=== PATIENT | male | born 1945 | race Caucasian/White ===

== ENCOUNTER 2020-07-03 00:07 | Inpatient (IN) | payer OTHER, MEDICARE ==
[2020-07-03] MEDS ORDERED: MIDAZOLAM HCL 2 MG/2 ML SINGLE DOSE VIAL ONE (00:19)
[2020-07-03] MEDS ORDERED: MIDAZOLAM HCL 2 MG/2 ML SINGLE DOSE VIAL IVPUSH ONE (00:22)
[2020-07-03] MEDS ORDERED: SODIUM CHLORIDE 0.9% 1000 ML INFUS.BAG IV ONE (00:22)
[2020-07-03] MEDS ORDERED: VANCOMYCIN 1 GM in D5W (PRE-DOCKED) 1,000 MG/250 ML IVPB ONE (00:23)
[2020-07-03] MEDS ORDERED: PIPERACILLIN/TAZOB 4.5 GM 4.5 GM in DEXTROSE 5%-WATER 100 ML IVPB ONE (00:24)
[2020-07-03] MEDS ORDERED: MIDAZOLAM 100 MG/100 ML MG IVPB ONE (00:29)
[2020-07-03] MEDS ORDERED: FENTANYL NS IVPB 500 MCG/100 ML BAG IVPB ONE (00:40)
[2020-07-03 00:46] LABS: ARTERIAL BLD GAS O2 SATURATION 99.3 mmHg (95-98); ARTERIAL BLOOD GAS PO2 302.4 mmHg (80-100)
[2020-07-03 00:47] LABS: ARTERIAL BLOOD GAS pH 7.005 (7.350-7.450)
[2020-07-03 00:48] LABS: ALLENS TEST POSITIVE
[2020-07-03 00:49] LABS: VENT MODE A/C; VENT RATE 20
[2020-07-03] MEDS ORDERED: SODIUM BICARBONATE 8.4% 50 MEQ/50 ML DISP.SYRIN IVPUSH ONE ×2 (01:04→01:05)
[2020-07-03] MEDS ORDERED: VASOPRESSIN 40 UNITS in SODIUM CHLORIDE 98 ML IVPB SCH (01:15)
[2020-07-03] MEDS: MIDAZOLAM 100 MG/100 ML MG IVPB SCH ×3 (01:18→21:58)
[2020-07-03] MEDS: NOREPINEPHRINE NS PREMIX 8,000 MCG/500 ML BAG IVPB SCH (01:21)
[2020-07-03] MEDS: FENTANYL NS IVPB 500 MCG/100 ML BAG IVPB SCH (01:22)
[2020-07-03] MEDS ORDERED: SODIUM BICARBONATE 8.4% - 50 ML ONE (02:21)
[2020-07-03] MEDS ORDERED: PIPERACILLIN/TAZOB 4.5 GM 4.5 GM/100 ML BAG IVPB ONE (02:22)
[2020-07-03] MEDS ORDERED: VANCOMYCIN 1 GRAM (PRE-DOCKED) 1,000 MG/250 ML BAG IVPB ONE (02:22)
[2020-07-03 02:53] LABS: VENOUS BASE EXCESS 1.8 mmol/L (-2-2); VENOUS O2 SATURATION 68.7 % (70-80); VENOUS PH 7.289 (7.310-7.410)
[2020-07-03 02:56] LABS: BASO % 0.5 % (0-2.0); EOS % 0.6 % (0-4.5); HEMATOCRIT 28.8 % (35.4-49); HEMOGLOBIN 9.3 GM/dL (11.7-16.9); MCH 30.1 pg (25.7-33.7); MCHC 32.2 g/dl (32.0-35.9); MEAN CELL VOLUME 93.5 fl (80-96); MEAN PLT VOLUME 9.8 fl (7.5-11.1); MONO % 5.1 % (3.8-10.2); NEUT % 89.8 % (42.8-82.8); PLATELET COUNT 293 K/MM3 (134-434); RBC 3.08 M/mm3 (4.00-5.60); RDW 14.5 % (11.9-15.9); WHITE BLOOD COUNT 18.9 K/mm3 (4.0-10.0)
[2020-07-03 03:00] LABS: EPI CELLS >36 /uL (0-25.1); HYALINE CASTS 119 /uL (0-3.1); URINE APPEARANCE TURBID; URINE BACTERIA 2433 /uL (0-1359); URINE BILIRUBIN NEGATIVE (NEGATIVE); URINE COLOR ORANGE; URINE GLUCOSE (UA) TRACE (NEGATIVE); URINE KETONE NEGATIVE (NEGATIVE); URINE LEUK ESTERASE 3+ (NEGATIVE); URINE NITRITE NEGATIVE (NEGATIVE); URINE PROTEIN 4+ (NEGATIVE); URINE WBC 10810 /uL (0-25.8)
[2020-07-03 03:13] LABS: INR 0.99 (0.83-1.09); PROTHROMBIN TIME (PATIENT) 12.2 SEC (9.7-13.0)
[2020-07-03 03:16] LABS: ACTIVATED PTT 32.5 SECONDS (25.2-36.5)
[2020-07-03] MEDS ORDERED: HEPARIN NA (PORCINE) 5,000 UNITS/ML 1ML VIAL IVPUSH PRN ×2 (03:40)
[2020-07-03] MEDS ORDERED: HEPARIN - 25,000 UNIT in SODIUM CHLORIDE 495 ML IV SCH (03:45)
[2020-07-03 03:56] LABS: ALBUMIN 2.9 g/dl (3.4-5.0); BILIRUBIN,TOTAL 0.6 mg/dL (0.2-1); BLOOD UREA NITROGEN 18.1 mg/dL (7-18); CALCIUM 10.2 mg/dL (8.5-10.1); CREATININE 0.7 mg/dL (0.55-1.3); MAGNESIUM 2.4 mg/dL (1.8-2.4); N-TERMINAL BNP 283.8 pg/ml (5-450); TOT PROT 6.6 g/dl (6.4-8.2)
[2020-07-03 04:47] LABS: PLATELET ESTIMATE NORMAL
[2020-07-03] MEDS: KCL 10 MEQ IVPB 10 MEQ/100 ML INFUS.BAG IVPB SCH ×5 (05:00→11:29)
[2020-07-03 05:06] LABS: URINE RBC 4980 /uL (0-23.9); YEAST NONE SEEN (NEGATIVE)
[2020-07-03] MEDS ORDERED: HEPARIN INFUSION - 25,000 UNITS/500 ML INFUS.BAG IVPB SCH ×2 (06:00→06:45)
[2020-07-03 06:26] LABS: ARTERIAL BLD GAS O2 SATURATION 97.9 mmHg (95-98); ARTERIAL BLOOD GAS BASE EXCESS 8.3 mmol/L (-2-2); ARTERIAL BLOOD GAS pH 7.425 (7.350-7.450)
[2020-07-03 06:32] LABS: ALLENS TEST POSITIVE; VENT MODE VOL A/C; VENT RATE 20
[2020-07-03 06:59] LABS: HEMATOCRIT 30.1 % (35.4-49); HEMOGLOBIN 9.9 GM/dL (11.7-16.9); MCH 30.2 pg (25.7-33.7); MCHC 32.7 g/dl (32.0-35.9); MEAN CELL VOLUME 92.2 fl (80-96); MEAN PLT VOLUME 9.1 fl (7.5-11.1); PLATELET COUNT 278 K/MM3 (134-434); RBC 3.27 M/mm3 (4.00-5.60); RDW 14.6 % (11.9-15.9); WHITE BLOOD COUNT 16.8 K/mm3 (4.0-10.0)
[2020-07-03 07:08] LABS: INR 1.03 (0.83-1.09); PROTHROMBIN TIME (PATIENT) 12.6 SEC (9.7-13.0)
[2020-07-03 07:11] LABS: ACTIVATED PTT 30.4 SECONDS (25.2-36.5)
[2020-07-03 07:26] LABS: CALCIUM 9.3 mg/dL (8.5-10.1)
[2020-07-03 07:27] LABS: ALBUMIN 2.9 g/dl (3.4-5.0); BLOOD UREA NITROGEN 19.7 mg/dL (7-18); MAGNESIUM 2.2 mg/dL (1.8-2.4)
[2020-07-03 07:30] LABS: BILIRUBIN,TOTAL 0.8 mg/dL (0.2-1); CREATININE 0.5 mg/dL (0.55-1.3); PHOSPHOROUS 3.9 mg/dL (2.5-4.9); TOT PROT 6.4 g/dl (6.4-8.2)
[2020-07-03] MEDS ORDERED: DEXTROSE 5%-WATER - 50 ML IVPB ONE ×3 (09:22→21:52)
[2020-07-03] MEDS ORDERED: PIPERACILLIN/TAZOBACTAM 3.375 GM VIAL IVPB ONE ×3 (09:22→21:52)
[2020-07-03] MEDS: PANTOPRAZOLE SODIUM 40 MG VIAL IVPUSH SCH (09:29)
[2020-07-03] MEDS ORDERED: PIPERACILLIN/TAZOB 3.375 GM 3.375 GM in DEXTROSE 5%-WATER - 50 ML IVPB SCH (10:00)
[2020-07-03] MEDS: FERROUS SO4 300 MG/5 ML ORAL SOLN UNIT DOSE CUPS GT SCH (11:28)
[2020-07-03] MEDS: MUPIROCIN 2% TOPICAL OINTMENT FOR DECOLONIZATION NS SCH ×2 (12:00→21:58)
[2020-07-03] MEDS ORDERED: MIDAZOLAM IN 0.9 % SOD.CHLORID 1 MG/1 ML PLAST..BAG ONE ×2 (12:10→21:54)
[2020-07-03] MEDS ORDERED: IRON SUCROSE INJECTION 100 MG in SODIUM CHLORIDE 95 ML IVPB ONE (12:30)
[2020-07-03] MEDS: HEPARIN NA (PORCINE) 5,000 UNITS/ML 1ML VIAL SQ SCH ×2 (15:03→21:58)
[2020-07-03] MEDS ORDERED: PT OWN MED DRAWER 7, Y5N ONE ×2 (15:03→16:27)
[2020-07-03] MEDS: PIPERACILLIN/TAZOB 3.375 GM 3.375 GM in DEXTROSE 5%-WATER - 50 ML IVPB SCH (17:03)
[2020-07-03] MEDS: CHLORHEXIDINE GLUCONATE 4% CLEANSER FOR DECOLONIZATION TP SCH (21:58)
[2020-07-04] MEDS: NOREPINEPHRINE NS PREMIX 8,000 MCG/500 ML BAG IVPB SCH (01:20)
[2020-07-04] MEDS: PIPERACILLIN/TAZOB 3.375 GM 3.375 GM in DEXTROSE 5%-WATER - 50 ML IVPB SCH ×3 (02:00→17:14)
[2020-07-04] MEDS: FENTANYL NS IVPB 500 MCG/100 ML BAG IVPB SCH (06:00)
[2020-07-04] MEDS: MIDAZOLAM 100 MG/100 ML MG IVPB SCH ×2 (06:00→08:51)
[2020-07-04] MEDS: HEPARIN NA (PORCINE) 5,000 UNITS/ML 1ML VIAL SQ SCH ×3 (06:09→21:22)
[2020-07-04 07:02] LABS: BASO % 0.7 % (0-2.0); EOS % 0.2 % (0-4.5); HEMATOCRIT 26.7 % (35.4-49); HEMOGLOBIN 8.9 GM/dL (11.7-16.9); LYMPH % 11.4 % (8-40); MCH 30.6 pg (25.7-33.7); MCHC 33.4 g/dl (32.0-35.9); MEAN CELL VOLUME 91.6 fl (80-96); MEAN PLT VOLUME 9.2 fl (7.5-11.1); MONO % 10.9 % (3.8-10.2); NEUT % 76.8 % (42.8-82.8); PLATELET COUNT 235 K/MM3 (134-434); RBC 2.92 M/mm3 (4.00-5.60); RDW 14.8 % (11.9-15.9); WHITE BLOOD COUNT 10.3 K/mm3 (4.0-10.0)
[2020-07-04 07:30] LABS: CALCIUM 8.7 mg/dL (8.5-10.1)
[2020-07-04 07:31] LABS: ALBUMIN 2.6 g/dl (3.4-5.0); BLOOD UREA NITROGEN 22.5 mg/dL (7-18); MAGNESIUM 1.9 mg/dL (1.8-2.4)
[2020-07-04 07:34] LABS: CREATININE 0.5 mg/dL (0.55-1.3); PHOSPHOROUS 3.3 mg/dL (2.5-4.9)
[2020-07-04 07:35] LABS: BILIRUBIN,TOTAL 0.7 mg/dL (0.2-1)
[2020-07-04 07:36] LABS: TOT PROT 5.7 g/dl (6.4-8.2)
[2020-07-04] MEDS ORDERED: PIPERACILLIN/TAZOBACTAM 3.375 GM VIAL IVPB ONE ×3 (08:43→21:21)
[2020-07-04] MEDS ORDERED: MIDAZOLAM IN 0.9 % SOD.CHLORID 1 MG/1 ML PLAST..BAG ONE (08:43)
[2020-07-04] MEDS ORDERED: DEXTROSE 5%-WATER - 50 ML IVPB ONE ×3 (08:44→21:21)
[2020-07-04] MEDS: PANTOPRAZOLE SODIUM 40 MG VIAL IVPUSH SCH (08:59)
[2020-07-04] MEDS: FERROUS SO4 300 MG/5 ML ORAL SOLN UNIT DOSE CUPS GT SCH (09:16)
[2020-07-04] MEDS: MUPIROCIN 2% TOPICAL OINTMENT FOR DECOLONIZATION NS SCH ×2 (09:17→21:22)
[2020-07-04] MEDS ORDERED: POTASSIUM CHLORIDE ORAL LIQUID 20 MEQ/15 ML PO ONE (09:50)
[2020-07-04] MEDS ORDERED: PIPERACILLIN/TAZOB 3.375 GM 3.375 GM in DEXTROSE 5%-WATER - 50 ML IVPB SCH (10:00)
[2020-07-04] MEDS: VANCOMYCIN 1 GRAM (PRE-DOCKED) 1,000 MG/250 ML BAG IVPB SCH ×2 (12:03→21:22)
[2020-07-04 18:02] LABS: BLOOD UREA NITROGEN 20.2 mg/dL (7-18); CALCIUM 8.9 mg/dL (8.5-10.1)
[2020-07-04 18:06] LABS: CREATININE 0.6 mg/dL (0.55-1.3)
[2020-07-04] MEDS ORDERED: ACETAMINOPHEN 1000 MG/100 ML VIAL (NON FORMULARY) IVPB ONE (21:19)
[2020-07-04] MEDS ORDERED: ACETAMINOPHEN INJECTION 100 ML IVPB ONE (21:21)
[2020-07-04] MEDS: CHLORHEXIDINE GLUCONATE 4% CLEANSER FOR DECOLONIZATION TP SCH (21:22)
[2020-07-05] MEDS ORDERED: MIDAZOLAM IN 0.9 % SOD.CHLORID 1 MG/1 ML PLAST..BAG ONE (02:12)
[2020-07-05] MEDS ORDERED: PIPERACILLIN/TAZOBACTAM 3.375 GM VIAL IVPB ONE ×3 (02:26→17:43)
[2020-07-05] MEDS ORDERED: DEXTROSE 5%-WATER - 50 ML IVPB ONE ×3 (02:26→17:43)
[2020-07-05] MEDS: PIPERACILLIN/TAZOB 3.375 GM 3.375 GM in DEXTROSE 5%-WATER - 50 ML IVPB SCH ×3 (03:17→17:47)
[2020-07-05] MEDS: MIDAZOLAM 100 MG/100 ML MG IVPB SCH (04:00)
[2020-07-05] MEDS: NOREPINEPHRINE NS PREMIX 8,000 MCG/500 ML BAG IVPB SCH (06:02)
[2020-07-05] MEDS: FENTANYL NS IVPB 500 MCG/100 ML BAG IVPB SCH ×2 (06:02→15:51)
[2020-07-05] MEDS: HEPARIN NA (PORCINE) 5,000 UNITS/ML 1ML VIAL SQ SCH ×3 (06:03→22:01)
[2020-07-05 06:30] LABS: HEMATOCRIT 27.3 % (35.4-49); HEMOGLOBIN 9.4 GM/dL (11.7-16.9); MCHC 34.3 g/dl (32.0-35.9); MEAN CELL VOLUME 90.5 fl (80-96); PLATELET COUNT 240 K/MM3 (134-434); RBC 3.02 M/mm3 (4.00-5.60); RDW 14.2 % (11.9-15.9); WHITE BLOOD COUNT 12.3 K/mm3 (4.0-10.0)
[2020-07-05 06:50] LABS: ALBUMIN 2.7 g/dl (3.4-5.0); CALCIUM 8.3 mg/dL (8.5-10.1)
[2020-07-05 06:51] LABS: BLOOD UREA NITROGEN 19.3 mg/dL (7-18)
[2020-07-05 06:54] LABS: CREATININE 0.6 mg/dL (0.55-1.3)
[2020-07-05 06:55] LABS: BILIRUBIN,TOTAL 0.7 mg/dL (0.2-1); TOT PROT 6.3 g/dl (6.4-8.2)
[2020-07-05] MEDS: AMINO ACIDS/PROTEIN HYDROLYS 30 ML LIQUID.PKT PO SCH (09:00)
[2020-07-05] MEDS ORDERED: PT OWN MED DRAWER 7, Y5N ONE (09:03)
[2020-07-05] MEDS: FERROUS SO4 300 MG/5 ML ORAL SOLN UNIT DOSE CUPS GT SCH (09:05)
[2020-07-05] MEDS: PANTOPRAZOLE SODIUM 40 MG VIAL IVPUSH SCH (09:05)
[2020-07-05] MEDS: MUPIROCIN 2% TOPICAL OINTMENT FOR DECOLONIZATION NS SCH ×2 (09:05→22:01)
[2020-07-05] MEDS: VANCOMYCIN 1 GRAM (PRE-DOCKED) 1,000 MG/250 ML BAG IVPB SCH ×2 (10:22→22:01)
[2020-07-05] MEDS: THIAMINE HCL 200 MG/2 ML VIAL IVPB SCH (11:10)
[2020-07-05] MEDS: CHLORHEXIDINE GLUCONATE 4% CLEANSER FOR DECOLONIZATION TP SCH (22:01)
[2020-07-06] MEDS: MIDAZOLAM 100 MG/100 ML MG IVPB SCH (01:05)
[2020-07-06] MEDS: NOREPINEPHRINE NS PREMIX 8,000 MCG/500 ML BAG IVPB SCH (01:05)
[2020-07-06] MEDS ORDERED: PIPERACILLIN/TAZOBACTAM 3.375 GM VIAL IVPB ONE ×3 (01:08→16:07)
[2020-07-06] MEDS ORDERED: DEXTROSE 5%-WATER - 50 ML IVPB ONE ×3 (01:08→16:08)
[2020-07-06] MEDS: PIPERACILLIN/TAZOB 3.375 GM 3.375 GM in DEXTROSE 5%-WATER - 50 ML IVPB SCH ×3 (01:10→17:05)
[2020-07-06] MEDS: FENTANYL NS IVPB 500 MCG/100 ML BAG IVPB SCH (01:10)
[2020-07-06] MEDS: HEPARIN NA (PORCINE) 5,000 UNITS/ML 1ML VIAL SQ SCH ×3 (05:52→21:27)
[2020-07-06 06:26] LABS: ARTERIAL BLD GAS O2 SATURATION 98.9 mmHg (95-98); ARTERIAL BLOOD GAS BASE EXCESS 3.3 mmol/L (-2-2); ARTERIAL BLOOD GAS pH 7.442 (7.350-7.450)
[2020-07-06 06:27] LABS: ALLENS TEST POSITIVE; VENT MODE A/C
[2020-07-06 06:28] LABS: VENT RATE 20
[2020-07-06] MEDS: THIAMINE HCL 200 MG/2 ML VIAL IVPB SCH (10:30)
[2020-07-06] MEDS: PANTOPRAZOLE SODIUM 40 MG VIAL IVPUSH SCH (10:30)
[2020-07-06] MEDS ORDERED: PT OWN MED DRAWER 7, Y5N ONE (10:41)
[2020-07-06] MEDS: AMINO ACIDS/PROTEIN HYDROLYS 30 ML LIQUID.PKT PO SCH (10:44)
[2020-07-06] MEDS: FERROUS SO4 300 MG/5 ML ORAL SOLN UNIT DOSE CUPS GT SCH (10:44)
[2020-07-06] MEDS: VANCOMYCIN 1 GRAM (PRE-DOCKED) 1,000 MG/250 ML BAG IVPB SCH ×2 (10:48→21:28)
[2020-07-06] MEDS ORDERED: SODIUM BICARBONATE 8.4% - 50 ML ONE (11:59)
[2020-07-06] MEDS ORDERED: SODIUM BICARBONATE 8.4% 50 MEQ/50 ML VIAL ONE (11:59)
[2020-07-06] MEDS: MUPIROCIN 2% TOPICAL OINTMENT FOR DECOLONIZATION NS SCH ×2 (13:37→21:26)
[2020-07-06 17:01] LABS: BASO % 0.4 % (0-2.0); EOS % 0.8 % (0-4.5); HEMATOCRIT 23.1 % (35.4-49); HEMOGLOBIN 7.8 GM/dL (11.7-16.9); LYMPH % 9.1 % (8-40); MCH 30.8 pg (25.7-33.7); MEAN CELL VOLUME 90.7 fl (80-96); MEAN PLT VOLUME 9.3 fl (7.5-11.1); MONO % 10.2 % (3.8-10.2); NEUT % 79.5 % (42.8-82.8); PLATELET COUNT 201 K/MM3 (134-434); RBC 2.54 M/mm3 (4.00-5.60); RDW 14.1 % (11.9-15.9); WHITE BLOOD COUNT 8.6 K/mm3 (4.0-10.0)
[2020-07-06 17:29] LABS: BLOOD UREA NITROGEN 17.6 mg/dL (7-18); CALCIUM 8.2 mg/dL (8.5-10.1)
[2020-07-06 17:30] LABS: MAGNESIUM 1.7 mg/dL (1.8-2.4)
[2020-07-06 17:32] LABS: PHOSPHOROUS 2.4 mg/dL (2.5-4.9)
[2020-07-06 17:33] LABS: CREATININE 0.4 mg/dL (0.55-1.3)
[2020-07-06 17:34] LABS: BILIRUBIN,TOTAL 0.7 mg/dL (0.2-1); TOT PROT 5.3 g/dl (6.4-8.2)
[2020-07-06] MEDS ORDERED: MAGNESIUM 1GM/D5W - 2 GM/200 ML IVPB IVPB ONE (17:34)
[2020-07-06 17:36] LABS: ALBUMIN 2.1 g/dl (3.4-5.0)
[2020-07-06] MEDS: KCL 10 MEQ IVPB 10 MEQ/100 ML INFUS.BAG IVPB SCH ×2 (18:11→19:16)
[2020-07-06] MEDS ORDERED: ACETAMINOPHEN 1000 MG/100 ML VIAL (NON FORMULARY) IVPB PRN (19:35)
[2020-07-06] MEDS: CHLORHEXIDINE GLUCONATE 4% CLEANSER FOR DECOLONIZATION TP SCH (21:27)
[2020-07-07] MEDS ORDERED: PIPERACILLIN/TAZOBACTAM 3.375 GM VIAL IVPB ONE ×3 (00:53→16:51)
[2020-07-07] MEDS ORDERED: DEXTROSE 5%-WATER - 50 ML IVPB ONE ×3 (00:53→16:51)
[2020-07-07] MEDS: PIPERACILLIN/TAZOB 3.375 GM 3.375 GM in DEXTROSE 5%-WATER - 50 ML IVPB SCH ×2 (01:04→09:01)
[2020-07-07] MEDS: HEPARIN NA (PORCINE) 5,000 UNITS/ML 1ML VIAL SQ SCH ×3 (05:37→21:05)
[2020-07-07 06:03] LABS: ARTERIAL BLD GAS O2 SATURATION 95.7 mmHg (95-98); ARTERIAL BLOOD GAS BASE EXCESS 6.6 mmol/L (-2-2); ARTERIAL BLOOD GAS PO2 74.7 mmHg (80-100); ARTERIAL BLOOD GAS pH 7.467 (7.350-7.450)
[2020-07-07 06:06] LABS: ALLENS TEST POSITIVE
[2020-07-07 06:07] LABS: VENT MODE A/C; VENT RATE 20
[2020-07-07 07:20] LABS: BASO % 0.6 % (0-2.0); EOS % 1.5 % (0-4.5); HEMATOCRIT 25.2 % (35.4-49); HEMOGLOBIN 8.6 GM/dL (11.7-16.9); LYMPH % 7.7 % (8-40); MCH 30.6 pg (25.7-33.7); MCHC 34.1 g/dl (32.0-35.9); MEAN CELL VOLUME 89.6 fl (80-96); MEAN PLT VOLUME 9.4 fl (7.5-11.1); MONO % 10.2 % (3.8-10.2); PLATELET COUNT 228 K/MM3 (134-434); RBC 2.81 M/mm3 (4.00-5.60); RDW 14.1 % (11.9-15.9); WHITE BLOOD COUNT 8.8 K/mm3 (4.0-10.0)
[2020-07-07 07:43] LABS: CALCIUM 8.2 mg/dL (8.5-10.1)
[2020-07-07 07:44] LABS: BLOOD UREA NITROGEN 14.4 mg/dL (7-18); MAGNESIUM 2.2 mg/dL (1.8-2.4)
[2020-07-07 07:45] LABS: ALBUMIN 2.2 g/dl (3.4-5.0)
[2020-07-07 07:48] LABS: CREATININE 0.4 mg/dL (0.55-1.3); PHOSPHOROUS 2.4 mg/dL (2.5-4.9)
[2020-07-07 07:50] LABS: TOT PROT 5.6 g/dl (6.4-8.2)
[2020-07-07 07:51] LABS: BILIRUBIN,TOTAL 0.7 mg/dL (0.2-1)
[2020-07-07 08:39] LABS: EPI CELLS 4 /uL (0-25.1); HYALINE CASTS 5 /uL (0-3.1); PH,URINE 7.5 (5.0-8.0); URINE APPEARANCE CLOUDY; URINE BACTERIA 255 /uL (0-1359); URINE BILIRUBIN NEGATIVE (NEGATIVE); URINE COLOR ORANGE; URINE GLUCOSE (UA) NEGATIVE (NEGATIVE); URINE KETONE NEGATIVE (NEGATIVE); URINE LEUK ESTERASE TRACE (NEGATIVE); URINE NITRITE NEGATIVE (NEGATIVE); URINE PROTEIN 3+ (NEGATIVE); URINE RBC 908 /uL (0-23.9); URINE WBC 248 /uL (0-25.8)
[2020-07-07] MEDS ORDERED: POTASSIUM CHLORIDE TABS 20 MEQ TABLET.ER (FP) PO ONE (08:45)
[2020-07-07] MEDS: KCL 10 MEQ IVPB 10 MEQ/100 ML INFUS.BAG IVPB SCH ×3 (08:57→11:55)
[2020-07-07] MEDS: AMINO ACIDS/PROTEIN HYDROLYS 30 ML LIQUID.PKT PO SCH (08:57)
[2020-07-07] MEDS ORDERED: POTASSIUM PHOSPHATE 30 MM in DEXTROSE 5%-WATER - 500 ML IVPB ONE (09:00)
[2020-07-07] MEDS: PANTOPRAZOLE SODIUM 40 MG VIAL IVPUSH SCH (10:04)
[2020-07-07] MEDS: VANCOMYCIN 1 GRAM (PRE-DOCKED) 1,000 MG/250 ML BAG IVPB SCH ×2 (10:04→21:05)
[2020-07-07] MEDS: MUPIROCIN 2% TOPICAL OINTMENT FOR DECOLONIZATION NS SCH ×2 (10:04→21:04)
[2020-07-07] MEDS: FERROUS SO4 300 MG/5 ML ORAL SOLN UNIT DOSE CUPS GT SCH (10:05)
[2020-07-07] MEDS: THIAMINE HCL 200 MG/2 ML VIAL IVPB SCH (10:05)
[2020-07-07] MEDS ORDERED: FUROSEMIDE 40 MG/4 ML INJECTABLE VIAL IVPUSH ONE (13:00)
[2020-07-07] MEDS: CHLORHEXIDINE GLUCONATE 4% CLEANSER FOR DECOLONIZATION TP SCH (21:04)
[2020-07-08] MEDS ORDERED: PIPERACILLIN/TAZOBACTAM 3.375 GM VIAL IVPB ONE ×3 (01:26→20:05)
[2020-07-08] MEDS ORDERED: DEXTROSE 5%-WATER - 50 ML IVPB ONE ×3 (01:26→20:05)
[2020-07-08] MEDS: PIPERACILLIN/TAZOB 3.375 GM 3.375 GM in DEXTROSE 5%-WATER - 50 ML IVPB SCH ×4 (01:27→20:08)
[2020-07-08] MEDS: HEPARIN NA (PORCINE) 5,000 UNITS/ML 1ML VIAL SQ SCH ×3 (05:37→21:31)
[2020-07-08 07:19] LABS: BASO % 0.3 % (0-2.0); HEMATOCRIT 24.6 % (35.4-49); HEMOGLOBIN 8.5 GM/dL (11.7-16.9); LYMPH % 8.4 % (8-40); MCH 30.9 pg (25.7-33.7); MCHC 34.5 g/dl (32.0-35.9); MEAN CELL VOLUME 89.7 fl (80-96); MEAN PLT VOLUME 9.2 fl (7.5-11.1); MONO % 10.6 % (3.8-10.2); NEUT % 75.7 % (42.8-82.8); PLATELET COUNT 248 K/MM3 (134-434); RBC 2.75 M/mm3 (4.00-5.60); RDW 14.1 % (11.9-15.9); WHITE BLOOD COUNT 8.6 K/mm3 (4.0-10.0)
[2020-07-08 07:45] LABS: BLOOD UREA NITROGEN 15.1 mg/dL (7-18); CALCIUM 8.3 mg/dL (8.5-10.1)
[2020-07-08 07:46] LABS: ALBUMIN 2.2 g/dl (3.4-5.0); MAGNESIUM 2.1 mg/dL (1.8-2.4)
[2020-07-08 07:49] LABS: CREATININE 0.4 mg/dL (0.55-1.3); PHOSPHOROUS 2.9 mg/dL (2.5-4.9)
[2020-07-08 07:50] LABS: BILIRUBIN,TOTAL 0.7 mg/dL (0.2-1)
[2020-07-08 07:51] LABS: TOT PROT 5.4 g/dl (6.4-8.2)
[2020-07-08] MEDS ORDERED: POTASSIUM CHLORIDE 20 MEQ PREMIX IVPB 100 ML IVPB ONE (08:44)
[2020-07-08] MEDS ORDERED: KCL 10 MEQ IVPB 10 MEQ/100 ML INFUS.BAG IVPB SCH (08:45)
[2020-07-08] MEDS: AMINO ACIDS/PROTEIN HYDROLYS 30 ML LIQUID.PKT PO SCH (09:00)
[2020-07-08] MEDS ORDERED: POTASSIUM CHLORIDE TABS 20 MEQ TABLET.ER (FP) PO ONE (09:00)
[2020-07-08] MEDS: PANTOPRAZOLE SODIUM 40 MG VIAL IVPUSH SCH (09:29)
[2020-07-08] MEDS: VANCOMYCIN 1 GRAM (PRE-DOCKED) 1,000 MG/250 ML BAG IVPB SCH ×2 (09:30→21:31)
[2020-07-08] MEDS: FERROUS SO4 300 MG/5 ML ORAL SOLN UNIT DOSE CUPS GT SCH (09:38)
[2020-07-08] MEDS: THIAMINE HCL 200 MG/2 ML VIAL IVPB SCH (09:38)
[2020-07-08] MEDS ORDERED: PNEUMOC 13-VAL CONJ-DIP CRM/PF 0.5 ML DISP.SYRIN IM ONE (10:00)
[2020-07-08] MEDS: CHLORHEXIDINE GLUCONATE 4% CLEANSER FOR DECOLONIZATION TP SCH (21:31)
[2020-07-09] MEDS ORDERED: PIPERACILLIN/TAZOBACTAM 3.375 GM VIAL IVPB ONE ×3 (01:46→18:02)
[2020-07-09] MEDS ORDERED: DEXTROSE 5%-WATER - 50 ML IVPB ONE ×3 (01:46→18:02)
[2020-07-09] MEDS: PIPERACILLIN/TAZOB 3.375 GM 3.375 GM in DEXTROSE 5%-WATER - 50 ML IVPB SCH ×3 (02:10→18:36)
[2020-07-09] MEDS: HEPARIN NA (PORCINE) 5,000 UNITS/ML 1ML VIAL SQ SCH ×3 (05:27→21:27)
[2020-07-09 08:44] LABS: BASO % 0.5 % (0-2.0); EOS % 3.9 % (0-4.5); HEMATOCRIT 26.6 % (35.4-49); LYMPH % 7.7 % (8-40); MCH 30.4 pg (25.7-33.7); MCHC 33.7 g/dl (32.0-35.9); MEAN CELL VOLUME 90.2 fl (80-96); MEAN PLT VOLUME 9.9 fl (7.5-11.1); MONO % 10.3 % (3.8-10.2); NEUT % 77.6 % (42.8-82.8); PLATELET COUNT 292 K/MM3 (134-434); RBC 2.94 M/mm3 (4.00-5.60); WHITE BLOOD COUNT 10.2 K/mm3 (4.0-10.0)
[2020-07-09 08:59] LABS: ALBUMIN 2.4 g/dl (3.4-5.0); BLOOD UREA NITROGEN 14.1 mg/dL (7-18); CALCIUM 8.9 mg/dL (8.5-10.1); MAGNESIUM 2.2 mg/dL (1.8-2.4)
[2020-07-09 09:02] LABS: CREATININE 0.4 mg/dL (0.55-1.3)
[2020-07-09 09:03] LABS: PHOSPHOROUS 2.7 mg/dL (2.5-4.9)
[2020-07-09 09:04] LABS: BILIRUBIN,TOTAL 0.6 mg/dL (0.2-1)
[2020-07-09 09:05] LABS: TOT PROT 5.8 g/dl (6.4-8.2)
[2020-07-09] MEDS ORDERED: PNEUMOC 13-VAL CONJ-DIP CRM/PF 0.5 ML DISP.SYRIN IM ONE (10:00)
[2020-07-09] MEDS ORDERED: PT OWN MED DRAWER 7, Y5N ONE (10:35)
[2020-07-09] MEDS: PANTOPRAZOLE SODIUM 40 MG VIAL IVPUSH SCH (10:45)
[2020-07-09] MEDS: AMINO ACIDS/PROTEIN HYDROLYS 30 ML LIQUID.PKT PO SCH (10:45)
[2020-07-09] MEDS: FERROUS SO4 300 MG/5 ML ORAL SOLN UNIT DOSE CUPS GT SCH (10:46)
[2020-07-09] MEDS: VANCOMYCIN 1 GRAM (PRE-DOCKED) 1,000 MG/250 ML BAG IVPB SCH ×2 (11:34→21:27)
[2020-07-09] MEDS: THIAMINE HCL 200 MG/2 ML VIAL IVPB SCH (11:34)
[2020-07-09] MEDS ORDERED: CHLORHEXIDINE GLUCONATE 4% CLEANSER FOR DECOLONIZATION TP SCH (22:00)
[2020-07-10] MEDS ORDERED: PIPERACILLIN/TAZOBACTAM 3.375 GM VIAL IVPB ONE ×3 (01:26→17:41)
[2020-07-10] MEDS ORDERED: DEXTROSE 5%-WATER - 50 ML IVPB ONE ×3 (01:26→17:41)
[2020-07-10] MEDS: PIPERACILLIN/TAZOB 3.375 GM 3.375 GM in DEXTROSE 5%-WATER - 50 ML IVPB SCH ×3 (02:18→17:52)
[2020-07-10] MEDS: HEPARIN NA (PORCINE) 5,000 UNITS/ML 1ML VIAL SQ SCH ×3 (05:02→21:27)
[2020-07-10 09:00] LABS: BLOOD UREA NITROGEN 15.7 mg/dL (7-18); CALCIUM 8.7 mg/dL (8.5-10.1)
[2020-07-10 09:01] LABS: ALBUMIN 2.3 g/dl (3.4-5.0)
[2020-07-10 09:04] LABS: CREATININE 0.4 mg/dL (0.55-1.3)
[2020-07-10 09:05] LABS: BILIRUBIN,TOTAL 0.5 mg/dL (0.2-1)
[2020-07-10] MEDS: FERROUS SO4 300 MG/5 ML ORAL SOLN UNIT DOSE CUPS GT SCH (09:48)
[2020-07-10] MEDS: AMINO ACIDS/PROTEIN HYDROLYS 30 ML LIQUID.PKT PO SCH (09:48)
[2020-07-10] MEDS: PANTOPRAZOLE SODIUM 40 MG VIAL IVPUSH SCH (09:48)
[2020-07-10] MEDS: VANCOMYCIN 1 GRAM (PRE-DOCKED) 1,000 MG/250 ML BAG IVPB SCH ×2 (11:12→23:14)
[2020-07-10] MEDS ORDERED: ACETAMINOPHEN 160 MG/5 ML *Children Solution PO PRN (11:54)
[2020-07-10] MEDS ORDERED: ACETAMINOPHEN 650 MG/20.3 ML ORAL SOLUTION (CUPS) PO PRN (12:05)
[2020-07-10] MEDS: THIAMINE HCL 200 MG/2 ML VIAL IVPB SCH (12:48)
[2020-07-11] MEDS ORDERED: DEXTROSE 5%-WATER - 50 ML IVPB ONE ×3 (00:58→17:15)
[2020-07-11] MEDS ORDERED: PIPERACILLIN/TAZOBACTAM 3.375 GM VIAL IVPB ONE ×3 (00:58→17:15)
[2020-07-11] MEDS: PIPERACILLIN/TAZOB 3.375 GM 3.375 GM in DEXTROSE 5%-WATER - 50 ML IVPB SCH ×3 (02:15→17:16)
[2020-07-11] MEDS: HEPARIN NA (PORCINE) 5,000 UNITS/ML 1ML VIAL SQ SCH ×3 (05:09→22:38)
[2020-07-11 09:10] LABS: ALBUMIN 2.2 g/dl (3.4-5.0); CALCIUM 9.2 mg/dL (8.5-10.1)
[2020-07-11 09:11] LABS: BLOOD UREA NITROGEN 16.2 mg/dL (7-18)
[2020-07-11 09:16] LABS: BILIRUBIN,TOTAL 0.4 mg/dL (0.2-1); TOT PROT 5.6 g/dl (6.4-8.2)
[2020-07-11 09:17] LABS: CREATININE 0.5 mg/dL (0.55-1.3)
[2020-07-11] MEDS: AMINO ACIDS/PROTEIN HYDROLYS 30 ML LIQUID.PKT PO SCH (10:00)
[2020-07-11] MEDS: PANTOPRAZOLE SODIUM 40 MG VIAL IVPUSH SCH (10:00)
[2020-07-11] MEDS: FERROUS SO4 300 MG/5 ML ORAL SOLN UNIT DOSE CUPS GT SCH (10:00)
[2020-07-11] MEDS: VANCOMYCIN 1 GRAM (PRE-DOCKED) 1,000 MG/250 ML BAG IVPB SCH ×2 (10:05→22:39)
[2020-07-11] MEDS: THIAMINE HCL 200 MG/2 ML VIAL IVPB SCH (10:07)
[2020-07-12] MEDS ORDERED: DEXTROSE 5%-WATER - 50 ML IVPB ONE ×3 (01:15→17:24)
[2020-07-12] MEDS ORDERED: PIPERACILLIN/TAZOBACTAM 3.375 GM VIAL IVPB ONE ×3 (01:15→17:23)
[2020-07-12] MEDS: PIPERACILLIN/TAZOB 3.375 GM 3.375 GM in DEXTROSE 5%-WATER - 50 ML IVPB SCH ×3 (02:30→17:29)
[2020-07-12] MEDS: HEPARIN NA (PORCINE) 5,000 UNITS/ML 1ML VIAL SQ SCH ×3 (05:41→21:46)
[2020-07-12 08:35] LABS: ALBUMIN 2.3 g/dl (3.4-5.0)
[2020-07-12 08:37] LABS: BLOOD UREA NITROGEN 14.2 mg/dL (7-18); CALCIUM 8.9 mg/dL (8.5-10.1)
[2020-07-12 08:39] LABS: CREATININE 0.4 mg/dL (0.55-1.3)
[2020-07-12 08:40] LABS: TOT PROT 5.9 g/dl (6.4-8.2)
[2020-07-12 08:43] LABS: BILIRUBIN,TOTAL 0.6 mg/dL (0.2-1)
[2020-07-12] MEDS ORDERED: POTASSIUM CHLORIDE TABS 20 MEQ TABLET.ER (FP) PO ONE (09:30)
[2020-07-12] MEDS: PANTOPRAZOLE 40 MG TABLET PO SCH (11:30)
[2020-07-12] MEDS: THIAMINE HCL 100 MG TABLET (FP) PO SCH (11:30)
[2020-07-12] MEDS: FERROUS SO4 300 MG/5 ML ORAL SOLN UNIT DOSE CUPS GT SCH (11:30)
[2020-07-12] MEDS: VANCOMYCIN 1 GRAM (PRE-DOCKED) 1,000 MG/250 ML BAG IVPB SCH ×2 (11:31→21:46)
[2020-07-12] MEDS: AMINO ACIDS/PROTEIN HYDROLYS 30 ML LIQUID.PKT PO SCH (11:32)
[2020-07-12 14:28] VITALS: BMI 23.3
[2020-07-12] MEDS ORDERED: PT OWN MED DRAWER 7, Y5N ONE (15:44)
[2020-07-13] MEDS ORDERED: DEXTROSE 5%-WATER - 50 ML IVPB ONE ×3 (00:57→18:08)
[2020-07-13] MEDS ORDERED: PIPERACILLIN/TAZOBACTAM 3.375 GM VIAL IVPB ONE ×3 (00:57→18:08)
[2020-07-13] MEDS: PIPERACILLIN/TAZOB 3.375 GM 3.375 GM in DEXTROSE 5%-WATER - 50 ML IVPB SCH ×3 (01:27→18:36)
[2020-07-13] MEDS: HEPARIN NA (PORCINE) 5,000 UNITS/ML 1ML VIAL SQ SCH ×3 (05:01→22:24)
[2020-07-13 09:10] LABS: ALBUMIN 2.3 g/dl (3.4-5.0); CALCIUM 9.2 mg/dL (8.5-10.1)
[2020-07-13 09:15] LABS: BILIRUBIN,TOTAL 0.5 mg/dL (0.2-1); CREATININE 0.5 mg/dL (0.55-1.3); TOT PROT 5.9 g/dl (6.4-8.2)
[2020-07-13] MEDS: AMINO ACIDS/PROTEIN HYDROLYS 30 ML LIQUID.PKT PO SCH (10:29)
[2020-07-13] MEDS: FERROUS SO4 300 MG/5 ML ORAL SOLN UNIT DOSE CUPS GT SCH (10:29)
[2020-07-13] MEDS: PANTOPRAZOLE 40 MG TABLET PO SCH (10:29)
[2020-07-13] MEDS: THIAMINE HCL 100 MG TABLET (FP) PO SCH (10:29)
[2020-07-13] MEDS: VANCOMYCIN 1 GRAM (PRE-DOCKED) 1,000 MG/250 ML BAG IVPB SCH ×2 (10:29→22:21)
[2020-07-13] MEDS: amLODIPine BESYLATE 5 MG TABLET (FP) PO SCH (13:21)
[2020-07-13] MEDS ORDERED: ALBUTEROL SO4 2.5/IPRATROPIUM 0.5 INH SOL 3 ML VIAL.NEB. NEB PRN (16:41)
[2020-07-13 18:21] LABS: BASO % 0.3 % (0-2.0); EOS % 2.1 % (0-4.5); HEMATOCRIT 26.8 % (35.4-49); HEMOGLOBIN 8.8 GM/dL (11.7-16.9); LYMPH % 8.6 % (8-40); MCH 29.8 pg (25.7-33.7); MCHC 33.1 g/dl (32.0-35.9); MEAN CELL VOLUME 90.2 fl (80-96); MEAN PLT VOLUME 8.7 fl (7.5-11.1); PLATELET COUNT 369 K/MM3 (134-434); RBC 2.97 M/mm3 (4.00-5.60); RDW 14.2 % (11.9-15.9); WHITE BLOOD COUNT 11.5 K/mm3 (4.0-10.0)
[2020-07-13 18:39] LABS: ALBUMIN 2.2 g/dl (3.4-5.0); BLOOD UREA NITROGEN 17.4 mg/dL (7-18); CALCIUM 8.9 mg/dL (8.5-10.1); MAGNESIUM 2.4 mg/dL (1.8-2.4)
[2020-07-13 18:42] LABS: CREATININE 0.4 mg/dL (0.55-1.3)
[2020-07-13 18:43] LABS: BILIRUBIN,TOTAL 0.4 mg/dL (0.2-1); TOT PROT 5.8 g/dl (6.4-8.2)
[2020-07-14] MEDS ORDERED: DEXTROSE 5%-WATER - 50 ML IVPB ONE ×3 (01:48→17:04)
[2020-07-14] MEDS: PIPERACILLIN/TAZOB 3.375 GM 3.375 GM in DEXTROSE 5%-WATER - 50 ML IVPB SCH ×3 (01:48→17:17)
[2020-07-14] MEDS ORDERED: PIPERACILLIN/TAZOBACTAM 3.375 GM VIAL IVPB ONE ×3 (01:48→17:04)
[2020-07-14] MEDS: HEPARIN NA (PORCINE) 5,000 UNITS/ML 1ML VIAL SQ SCH ×3 (06:01→22:28)
[2020-07-14 08:18] LABS: BASO % 0.3 % (0-2.0); EOS % 2.7 % (0-4.5); HEMATOCRIT 26.6 % (35.4-49); LYMPH % 9.7 % (8-40); MCH 30.2 pg (25.7-33.7); MCHC 33.6 g/dl (32.0-35.9); MEAN CELL VOLUME 89.8 fl (80-96); MEAN PLT VOLUME 9.4 fl (7.5-11.1); MONO % 7.7 % (3.8-10.2); NEUT % 79.6 % (42.8-82.8); PLATELET COUNT 360 K/MM3 (134-434); RBC 2.97 M/mm3 (4.00-5.60); RDW 14.2 % (11.9-15.9)
[2020-07-14 08:45] LABS: CALCIUM 8.8 mg/dL (8.5-10.1)
[2020-07-14 08:46] LABS: ALBUMIN 2.3 g/dl (3.4-5.0); BLOOD UREA NITROGEN 16.6 mg/dL (7-18)
[2020-07-14 08:50] LABS: BILIRUBIN,TOTAL 0.5 mg/dL (0.2-1); CREATININE 0.5 mg/dL (0.55-1.3); TOT PROT 6.1 g/dl (6.4-8.2)
[2020-07-14] MEDS: PANTOPRAZOLE 40 MG TABLET PO SCH (10:36)
[2020-07-14] MEDS: FERROUS SO4 300 MG/5 ML ORAL SOLN UNIT DOSE CUPS GT SCH (10:36)
[2020-07-14] MEDS: VANCOMYCIN 1 GRAM (PRE-DOCKED) 1,000 MG/250 ML BAG IVPB SCH (10:36)
[2020-07-14] MEDS: AMINO ACIDS/PROTEIN HYDROLYS 30 ML LIQUID.PKT PO SCH (10:36)
[2020-07-14] MEDS: THIAMINE HCL 100 MG TABLET (FP) PO SCH (10:36)
[2020-07-14] MEDS: amLODIPine BESYLATE 5 MG TABLET (FP) PO SCH (10:36)
[2020-07-14] MEDS: OCULAR LUBRICANT OPHTHALMIC OINTMENT 7 GM TUBE OU PRN (14:12)
[2020-07-15] MEDS: HEPARIN NA (PORCINE) 5,000 UNITS/ML 1ML VIAL SQ SCH ×3 (05:19→21:37)
[2020-07-15] MEDS: THIAMINE HCL 100 MG TABLET (FP) PO SCH (09:59)
[2020-07-15] MEDS: FERROUS SO4 300 MG/5 ML ORAL SOLN UNIT DOSE CUPS GT SCH (09:59)
[2020-07-15] MEDS: PANTOPRAZOLE 40 MG TABLET PO SCH (09:59)
[2020-07-15] MEDS: OCULAR LUBRICANT OPHTHALMIC OINTMENT 7 GM TUBE OU PRN (09:59)
[2020-07-15] MEDS: amLODIPine BESYLATE 5 MG TABLET (FP) PO SCH (09:59)
[2020-07-15] MEDS: AMINO ACIDS/PROTEIN HYDROLYS 30 ML LIQUID.PKT PO SCH (09:59)
[2020-07-16] MEDS: HEPARIN NA (PORCINE) 5,000 UNITS/ML 1ML VIAL SQ SCH ×3 (05:16→20:59)
[2020-07-16] MEDS: PANTOPRAZOLE 40 MG TABLET PO SCH (10:53)
[2020-07-16] MEDS: FERROUS SO4 300 MG/5 ML ORAL SOLN UNIT DOSE CUPS GT SCH (10:53)
[2020-07-16] MEDS: THIAMINE HCL 100 MG TABLET (FP) PO SCH (10:53)
[2020-07-16] MEDS: amLODIPine BESYLATE 5 MG TABLET (FP) PO SCH (10:53)
[2020-07-16] MEDS: AMINO ACIDS/PROTEIN HYDROLYS 30 ML LIQUID.PKT PO SCH (10:54)
[2020-07-17] MEDS: HEPARIN NA (PORCINE) 5,000 UNITS/ML 1ML VIAL SQ SCH ×2 (05:52→14:42)
[2020-07-17] MEDS: THIAMINE HCL 100 MG TABLET (FP) PO SCH (10:47)
[2020-07-17] MEDS: FERROUS SO4 300 MG/5 ML ORAL SOLN UNIT DOSE CUPS GT SCH (10:47)
[2020-07-17] MEDS: PANTOPRAZOLE 40 MG TABLET PO SCH (10:47)
[2020-07-17] MEDS: AMINO ACIDS/PROTEIN HYDROLYS 30 ML LIQUID.PKT PO SCH (10:47)
[2020-07-17] MEDS: amLODIPine BESYLATE 5 MG TABLET (FP) PO SCH (10:47)
[2020-07-17] MEDS ORDERED: PNEUMOC 13-VAL CONJ-DIP CRM/PF 0.5 ML DISP.SYRIN IM ONE (14:00)
[2020-07-17 15:21] VITALS: BP 158/89; PULSE 94; TEMP 98.7
== END 2020-07-17 18:19 | DRG 870 ==
LOC: JER 00:07 → JERBED 01:09 → JICU 04:51 → J5S 07-09 01:17
PROVIDERS: ADMIT Internal Medicine; ATTEND Family Medicine
PROC: 05HM33Z Insertion of Infusion Device into Right Internal Jugular Vein, Percutaneous Approach (ICD-10-PCS; principal; 2020-07-03)
PROC: 5A1955Z Respiratory Ventilation, Greater than 96 Consecutive Hours (ICD-10-PCS; 2020-07-03)
PROC: 0CHY7BZ Insertion of Airway into Mouth and Throat, Via Natural or Artificial Opening (ICD-10-PCS; 2020-07-03)
DX: A41.89 Other specified sepsis (principal); R65.21 Severe sepsis with septic shock; J96.21 Acute and chronic respiratory failure with hypoxia; I46.9 Cardiac arrest, cause unspecified; J96.22 Acute and chronic respiratory failure with hypercapnia; I24.8 Other forms of acute ischemic heart disease; G93.1 Anoxic brain damage, not elsewhere classified; T17.590A Other foreign object in bronchus causing asphyxiation, initial encounter; N39.0 Urinary tract infection, site not specified; I47.2 Ventricular tachycardia; A41.9 Sepsis, unspecified organism; J44.9 Chronic obstructive pulmonary disease, unspecified; I44.0 Atrioventricular block, first degree; F20.9 Schizophrenia, unspecified; Z93.0 Tracheostomy status; G47.00 Insomnia, unspecified; I95.9 Hypotension, unspecified; D50.9 Iron deficiency anemia, unspecified; R50.9 Fever, unspecified; B96.5 Pseudomonas (aeruginosa) (mallei) (pseudomallei) as the cause of diseases classified elsewhere; D72.829 Elevated white blood cell count, unspecified; I45.10 Unspecified right bundle-branch block; Z93.1 Gastrostomy status
CPT/HCPCS: 36415; 36600; 70450-TC; 71045-TC-FY; 80048; 80053; 81003; 82272; 82550; 82553; 82607; 82728; 82746; 82803; 83540; 83550; 83605; 83735; 83880; 84100; 84484; 85025; 85027; 85045; 85610; 85730; 86850; 86900; 86901; 87040; 87070; 87086; 87186; 87205; 87899; 90670; 93005; 93010; 93306-TC; 94002; 99285-25; C9803; G0480; J0131; J1644; J1756; U0003; U0005